=== PATIENT | male | born 1935 | race African-American/Black ===

== ENCOUNTER 2017-07-07 13:27 | Inpatient (IN) | payer MEDICARE, MEDICAID ==
[~2017-07-07] VITALS: Ht 182.9 cm; Wt 94.0 kg
[~2017-07-07 13:27] MED LIST: ENAL20TA75 PO; GLIP-127 PO; METO5TAB98 PO; NIFE90TA37 PO; NPH,100V SQ
[2017-07-07] MEDS ORDERED: aspirin 81mg tab.chew PO ONE (13:35)
[2017-07-07] MEDS ORDERED: furosemide 10 MG/1 ML 10ml inj IV ONE ×2 (13:35→17:00)
[2017-07-07 14:00] LABS: BASOPHILS % (AUTO) 0.3 % (0-1); EOSINOPHILS # (AUTO) 0.1 X10'3 (0-0.9); EOSINOPHILS % (AUTO) 1.7 % (0-6); HEMATOCRIT 41.4 % (42.0-52.0); LYMPHOCYTES # (AUTO) 0.9 X10'3 (1.1-4.8); LYMPHOCYTES % (AUTO) 11.9 % (21-51); MEAN CORPUSCULAR HGB CONC 33.8 % (33.0-36.5); MEAN CORPUSCULAR VOLUME 91.6 FL (78-98); MEAN PLATELET VOLUME 7.7 FL (7.4-10.4); MONOCYTES # (AUTO) 0.3 X10'3 (0-0.9); MONOCYTES % (AUTO) 4.8 % (2-12); NEUTROPHILS # (AUTO) 5.9 X10'3 (1.8-7.7); NEUTROPHILS % (AUTO) 81.3 % (42-75); PLATELET COUNT 293 X10'3 (140-440); RED BLOOD COUNT 4.52 X10'6 (4.70-6.10); RED CELL DISTRIBUTION WIDTH 17.9 % (11.5-14.5); WHITE BLOOD COUNT 7.2 X10'3 (4.5-11.0)
[2017-07-07 14:09] LABS: PROTHROMBIN TIME 10.1 SECONDS (9.0-12.0)
[2017-07-07 14:22] LABS: ALANINE AMINOTRANSFERASE 31 U/L (12-78); ALBUMIN 3.4 G/DL (3.4-5.0); ALBUMIN/GLOBULIN RATIO 0.8 (1.1-1.5); ALKALINE PHOSPHATASE 119 IU/L (46-116); ANION GAP 10 (8-16); ASPARTATE AMINO TRANSFERASE 26 U/L (10-37); BILIRUBIN,TOTAL 0.4 MG/DL (0.1-1.0); BLOOD UREA NITROGEN 26 MG/DL (7-18); CALCIUM 9.1 MG/DL (8.5-10.1); CHLORIDE 106 MMOL/L (99-107); CREATININE 2.37 MG/DL (0.60-1.10); GLUCOSE 220 MG/DL (70-104); POTASSIUM 4.7 MMOL/L (3.5-5.1); SODIUM 142 MMOL/L (135-145); TOTAL PROTEIN 7.9 G/DL (6.4-8.2); eGFR 32 ML/MIN
[2017-07-07] MEDS ORDERED: FLU VACC QS2017-18 36MOS UP/PF 60 MCG/0.5 ML SYRINGE IMVAC ONE (15:05)
[2017-07-07] MEDS ORDERED: pneumococcal 23-VAL P-sac vacc 25 mcg/0.5ml vial IMVAC ONE (15:05)
[2017-07-07] MEDS ORDERED: GLIP10TA11 PO (15:34)
[2017-07-07] MEDS ORDERED: METO-467 PO (15:34)
[2017-07-07] MEDS ORDERED: MULT1TAB74 PO (15:34)
[2017-07-07] MEDS ORDERED: ASPI-1265 PO (15:34)
[2017-07-07] MEDS ORDERED: OMEP20TA23 PO (15:34)
[2017-07-07] MEDS ORDERED: ondansetron/PF 4mg/2ml inj IV PRN (17:00)
[2017-07-07] MEDS ORDERED: albuterol 2.5 MG/3 ML nebule NEB PRN (17:00)
[2017-07-07] MEDS ORDERED: magnesium 2GM in 50ml NS 50 ML IV PRN (17:00)
[2017-07-07] MEDS ORDERED: morphine 5 MG/ML injection IV PRN ×2 (17:00)
[2017-07-07] MEDS ORDERED: magnesium 4gm in 100ml NS 100 ML IV PRN (17:00)
[2017-07-07] MEDS ORDERED: potassium Cl 40MEQ/NS 500ml 500 ML IV PRN ×2 (17:00)
[2017-07-07] MEDS ORDERED: potassium Cl 20 mEq SR tablet PO PRN ×2 (17:00)
[2017-07-07] MEDS ORDERED: magnesium hydroxide 30ml (MOM) UD suspension PO PRN (17:00)
[2017-07-07] MEDS ORDERED: acetaminophen 325mg tablet PO PRN (17:00)
[2017-07-07] MEDS ORDERED: mag hydrox/Alum hydrox/simeth 30ml oral suspension PO PRN (17:00)
[2017-07-07] MEDS ORDERED: magnesium Cl slow-release 64mg tablet PO PRN (17:00)
[2017-07-07 18:02] LABS: HEMOGLOBIN A1C 7.5 % (4.5-6.2)
[2017-07-07] MEDS ORDERED: BUMEX 1 MG IV SCH (18:02)
[2017-07-07] MEDS ORDERED: BUMEX 1 MG IV ONE (18:02)
[2017-07-07 19:30] VITALS: BP 150/73
[2017-07-07] MEDS ORDERED: ENALAPRIL MALEATE 20 MG PO SCH (20:00)
[2017-07-07] MEDS: lisinopril 20mg tablet PO SCH (20:07)
[2017-07-07] MEDS: metoprolol tartrate 50mg tablet PO SCH (20:08)
[2017-07-07] MEDS: heparin, porcine 5000 units/ml vial SQ SCH (20:11)
[2017-07-07 22:22] LABS: MAGNESIUM 2.6 MG/DL (1.5-2.4)
[2017-07-07 23:00] VITALS: BP 146/58
[2017-07-08 02:28] LABS: BASOPHILS % (AUTO) 0.6 % (0-1); EOSINOPHILS # (AUTO) 0.2 X10'3 (0-0.9); EOSINOPHILS % (AUTO) 2.7 % (0-6); HEMATOCRIT 39.4 % (42.0-52.0); HEMOGLOBIN 13.1 g/dl (14.0-17.9); LYMPHOCYTES # (AUTO) 0.9 X10'3 (1.1-4.8); LYMPHOCYTES % (AUTO) 11.9 % (21-51); MEAN CORPUSCULAR HGB CONC 33.4 % (33.0-36.5); MEAN CORPUSCULAR VOLUME 92.9 FL (78-98); MEAN PLATELET VOLUME 7.9 FL (7.4-10.4); MONOCYTES # (AUTO) 0.6 X10'3 (0-0.9); MONOCYTES % (AUTO) 7.6 % (2-12); NEUTROPHILS % (AUTO) 77.2 % (42-75); PLATELET COUNT 258 X10'3 (140-440); RED BLOOD COUNT 4.24 X10'6 (4.70-6.10); RED CELL DISTRIBUTION WIDTH 17.6 % (11.5-14.5); WHITE BLOOD COUNT 7.8 X10'3 (4.5-11.0)
[2017-07-08 02:47] LABS: ALANINE AMINOTRANSFERASE 21 U/L (12-78); ALBUMIN 2.9 G/DL (3.4-5.0); ALBUMIN/GLOBULIN RATIO 0.7 (1.1-1.5); ALKALINE PHOSPHATASE 103 IU/L (46-116); ANION GAP 10 (8-16); ASPARTATE AMINO TRANSFERASE 23 U/L (10-37); BILIRUBIN,TOTAL 0.4 MG/DL (0.1-1.0); BLOOD UREA NITROGEN 26 MG/DL (7-18); BUN/CREATININE RATIO 12.1 (5.4-32.0); CALCIUM 8.9 MG/DL (8.5-10.1); CHLORIDE 108 MMOL/L (99-107); CHOL/HDL RATIO 2.2 (0.00-4.99); CHOLESTEROL 121 MG/DL (0-200); CREATININE 2.15 MG/DL (0.60-1.10); GLUCOSE 199 MG/DL (70-104); HDL CHOLESTEROL 56 MG/DL (35-60); LDL CHOLESTEROL 59 MG/DL (50-100); MAGNESIUM 2.4 MG/DL (1.5-2.4); POTASSIUM 4.1 MMOL/L (3.5-5.1); SODIUM 144 MMOL/L (135-145); TOTAL CARBON DIOXIDE 25.7 MMOL/L (24-32); TRIGLYCERIDES 71 MG/DL (20-135); eGFR 36 ML/MIN
[2017-07-08 03:00] VITALS: BP 179/80
[2017-07-08] MEDS: hydrALAZINE 20mg/ml inj. IV PRN (04:31)
[2017-07-08 06:00] VITALS: BP 190/92
[2017-07-08] MEDS ORDERED: NIFEDIPINE 90 MG PO SCH (08:00)
[2017-07-08] MEDS ORDERED: MULTIVITAMINS PO SCH (08:00)
[2017-07-08] MEDS: heparin, porcine 5000 units/ml vial SQ SCH ×2 (08:06→20:18)
[2017-07-08] MEDS: pantoprazole 40mg Tablet.DR PO SCH (08:08)
[2017-07-08] MEDS: aspirin 81mg tab.chew PO SCH (08:09)
[2017-07-08] MEDS: lisinopril 20mg tablet PO SCH ×2 (08:09→20:17)
[2017-07-08] MEDS: metoprolol tartrate 50mg tablet PO SCH ×2 (08:09→20:17)
[2017-07-08] MEDS: multivitamins, therapeutics tablet PO SCH (08:09)
[2017-07-08] MEDS: NIFEdipine XL 30mg tablet PO SCH (08:09)
[2017-07-08] MEDS: K and/or MAG REPLACEMENT MC SCH (08:24)
[2017-07-08 11:00] VITALS: BP 144/70
[2017-07-08] MEDS ORDERED: dextrose 50%-water 50ml dispensing syringe IV PRN ×2 (11:30)
[2017-07-08] MEDS ORDERED: dextrose ORAL solution 15 GM/59 ML bottle PO PRN ×2 (11:30)
[2017-07-08] MEDS ORDERED: MESSAGE TO PHARMACY PO ONE (11:30)
[2017-07-08] MEDS ORDERED: glucagon, human recombinant 1mg kit SUBCUT PRN (11:30)
[2017-07-08] MEDS ORDERED: furosemide 20 MG/2 ML vial IV ONE (11:45)
[2017-07-08 15:00] VITALS: BP 103/73
[2017-07-08 19:00] VITALS: BP 159/81
[2017-07-08] MEDS: insulin Lispro (HumaLOG) vial - multi-dose SQ SCH (19:13)
[2017-07-08 23:00] VITALS: BP 168/70
[2017-07-09 03:00] VITALS: BP 180/109
[2017-07-09] MEDS: hydrALAZINE 20mg/ml inj. IV PRN (03:13)
[2017-07-09 05:49] LABS: BASOPHILS % (AUTO) 0.2 % (0-1); EOSINOPHILS # (AUTO) 0.1 X10'3 (0-0.9); EOSINOPHILS % (AUTO) 1.2 % (0-6); HEMATOCRIT 41.5 % (42.0-52.0); LYMPHOCYTES % (AUTO) 14.2 % (21-51); MEAN CORPUSCULAR HEMOGLOBIN 30.9 PG (27.0-31.0); MEAN CORPUSCULAR HGB CONC 33.8 % (33.0-36.5); MEAN CORPUSCULAR VOLUME 91.7 FL (78-98); MONOCYTES # (AUTO) 0.6 X10'3 (0-0.9); MONOCYTES % (AUTO) 7.7 % (2-12); NEUTROPHILS # (AUTO) 5.6 X10'3 (1.8-7.7); NEUTROPHILS % (AUTO) 76.7 % (42-75); PLATELET COUNT 255 X10'3 (140-440); RED BLOOD COUNT 4.53 X10'6 (4.70-6.10); RED CELL DISTRIBUTION WIDTH 17.5 % (11.5-14.5); WHITE BLOOD COUNT 7.3 X10'3 (4.5-11.0)
[2017-07-09 06:16] LABS: ALANINE AMINOTRANSFERASE 27 U/L (12-78); ALBUMIN 2.9 G/DL (3.4-5.0); ALBUMIN/GLOBULIN RATIO 0.7 (1.1-1.5); ALKALINE PHOSPHATASE 106 IU/L (46-116); ANION GAP 13 (8-16); ASPARTATE AMINO TRANSFERASE 17 U/L (10-37); BILIRUBIN,TOTAL 0.5 MG/DL (0.1-1.0); BLOOD UREA NITROGEN 27 MG/DL (7-18); CHLORIDE 106 MMOL/L (99-107); CREATININE 2.08 MG/DL (0.60-1.10); GLUCOSE 103 MG/DL (70-104); MAGNESIUM 2.2 MG/DL (1.5-2.4); POTASSIUM 3.8 MMOL/L (3.5-5.1); SODIUM 143 MMOL/L (135-145); TOTAL CARBON DIOXIDE 23.8 MMOL/L (24-32); TOTAL PROTEIN 7.1 G/DL (6.4-8.2); eGFR 37 ML/MIN
[2017-07-09 06:27] LABS: TROPONIN I 0.22 NG/ML (0.0-0.05)
[2017-07-09 07:00] VITALS: BP 198/95
[2017-07-09] MEDS: lisinopril 20mg tablet PO SCH ×2 (08:08→20:55)
[2017-07-09] MEDS: heparin, porcine 5000 units/ml vial SQ SCH ×2 (08:08→20:56)
[2017-07-09] MEDS: metoprolol tartrate 50mg tablet PO SCH ×2 (08:09→20:55)
[2017-07-09] MEDS: pantoprazole 40mg Tablet.DR PO SCH (08:09)
[2017-07-09] MEDS: aspirin 81mg tab.chew PO SCH (08:09)
[2017-07-09] MEDS: multivitamins, therapeutics tablet PO SCH (08:09)
[2017-07-09] MEDS: NIFEdipine XL 30mg tablet PO SCH (08:09)
[2017-07-09] MEDS: K and/or MAG REPLACEMENT MC SCH (08:09)
[2017-07-09 11:00] VITALS: BP 174/110
[2017-07-09] MEDS ORDERED: furosemide 40mg/4ml inj IV ONE ×2 (11:35)
[2017-07-09] MEDS ORDERED: metoprolol tartrate 50mg tablet PO ONE (12:00)
[2017-07-09 15:00] VITALS: BP 134/74
[2017-07-09 19:00] VITALS: BP 159/87
[2017-07-09] MEDS: insulin Lispro (HumaLOG) vial - multi-dose SQ SCH (19:32)
[2017-07-09 23:00] VITALS: BP 153/71
[2017-07-09] MEDS: temazepam 15mg capsule PO PRN (23:54)
[2017-07-10 03:00] VITALS: BP 159/79
[2017-07-10 05:33] LABS: BASOPHILS # (AUTO) 0.1 X10'3 (0-0.2); BASOPHILS % (AUTO) 0.9 % (0-1); EOSINOPHILS # (AUTO) 0.1 X10'3 (0-0.9); EOSINOPHILS % (AUTO) 1.4 % (0-6); HEMATOCRIT 39.5 % (42.0-52.0); HEMOGLOBIN 13.3 g/dl (14.0-17.9); LYMPHOCYTES % (AUTO) 13.2 % (21-51); MEAN CORPUSCULAR HEMOGLOBIN 30.8 PG (27.0-31.0); MEAN CORPUSCULAR HGB CONC 33.5 % (33.0-36.5); MEAN CORPUSCULAR VOLUME 91.9 FL (78-98); MEAN PLATELET VOLUME 7.7 FL (7.4-10.4); MONOCYTES # (AUTO) 0.5 X10'3 (0-0.9); MONOCYTES % (AUTO) 6.9 % (2-12); NEUTROPHILS # (AUTO) 5.6 X10'3 (1.8-7.7); NEUTROPHILS % (AUTO) 77.6 % (42-75); PLATELET COUNT 264 X10'3 (140-440); RED CELL DISTRIBUTION WIDTH 17.4 % (11.5-14.5); WHITE BLOOD COUNT 7.2 X10'3 (4.5-11.0)
[2017-07-10 06:12] LABS: ALANINE AMINOTRANSFERASE 25 U/L (12-78); ALBUMIN 2.7 G/DL (3.4-5.0); ALBUMIN/GLOBULIN RATIO 0.7 (1.1-1.5); ALKALINE PHOSPHATASE 98 IU/L (46-116); ANION GAP 12 (8-16); ASPARTATE AMINO TRANSFERASE 24 U/L (10-37); BILIRUBIN,TOTAL 0.5 MG/DL (0.1-1.0); BLOOD UREA NITROGEN 31 MG/DL (7-18); CALCIUM 8.4 MG/DL (8.5-10.1); CHLORIDE 104 MMOL/L (99-107); CREATININE 2.21 MG/DL (0.60-1.10); GLUCOSE 119 MG/DL (70-104); MAGNESIUM 2.2 MG/DL (1.5-2.4); SODIUM 142 MMOL/L (135-145); TOTAL CARBON DIOXIDE 25.9 MMOL/L (24-32); TOTAL PROTEIN 6.7 G/DL (6.4-8.2); eGFR 35 ML/MIN
[2017-07-10 07:00] VITALS: BP 161/96
[2017-07-10] MEDS: pantoprazole 40mg Tablet.DR PO SCH (08:17)
[2017-07-10] MEDS: aspirin 81mg tab.chew PO SCH (08:17)
[2017-07-10] MEDS: multivitamins, therapeutics tablet PO SCH (08:18)
[2017-07-10] MEDS: metoprolol tartrate 25mg tablet PO SCH ×2 (08:18→20:25)
[2017-07-10] MEDS: lisinopril 20mg tablet PO SCH ×2 (08:18→20:26)
[2017-07-10] MEDS: NIFEdipine XL 30mg tablet PO SCH (08:18)
[2017-07-10] MEDS: K and/or MAG REPLACEMENT MC SCH (08:19)
[2017-07-10] MEDS: heparin, porcine 5000 units/ml vial SQ SCH ×2 (08:19→20:26)
[2017-07-10 11:00] VITALS: BP 165/72
[2017-07-10 15:00] VITALS: BP 128/72
[2017-07-10] MEDS: insulin Lispro (HumaLOG) vial - multi-dose SQ SCH (18:49)
[2017-07-10 19:00] VITALS: BP 143/91
[2017-07-10] MEDS: temazepam 15mg capsule PO PRN (20:26)
[2017-07-10 23:00] VITALS: BP 120/70
[2017-07-11 03:00] VITALS: BP 158/80
[2017-07-11 05:27] LABS: BASOPHILS % (AUTO) 0.5 % (0-1); EOSINOPHILS # (AUTO) 0.1 X10'3 (0-0.9); EOSINOPHILS % (AUTO) 1.6 % (0-6); HEMATOCRIT 36.3 % (42.0-52.0); HEMOGLOBIN 12.1 g/dl (14.0-17.9); LYMPHOCYTES # (AUTO) 0.7 X10'3 (1.1-4.8); LYMPHOCYTES % (AUTO) 11.8 % (21-51); MEAN CORPUSCULAR HEMOGLOBIN 30.7 PG (27.0-31.0); MEAN CORPUSCULAR HGB CONC 33.4 % (33.0-36.5); MEAN PLATELET VOLUME 7.5 FL (7.4-10.4); MONOCYTES # (AUTO) 0.6 X10'3 (0-0.9); MONOCYTES % (AUTO) 9.8 % (2-12); NEUTROPHILS # (AUTO) 4.9 X10'3 (1.8-7.7); NEUTROPHILS % (AUTO) 76.3 % (42-75); PLATELET COUNT 227 X10'3 (140-440); RED BLOOD COUNT 3.95 X10'6 (4.70-6.10); RED CELL DISTRIBUTION WIDTH 16.9 % (11.5-14.5); WHITE BLOOD COUNT 6.4 X10'3 (4.5-11.0)
[2017-07-11 06:00] VITALS: BP 156/81
[2017-07-11 06:00] LABS: ALANINE AMINOTRANSFERASE 27 U/L (12-78); ALBUMIN 2.3 G/DL (3.4-5.0); ALBUMIN/GLOBULIN RATIO 0.6 (1.1-1.5); ALKALINE PHOSPHATASE 86 IU/L (46-116); ANION GAP 7 (8-16); ASPARTATE AMINO TRANSFERASE 22 U/L (10-37); BILIRUBIN,TOTAL 0.3 MG/DL (0.1-1.0); BLOOD UREA NITROGEN 38 MG/DL (7-18); BUN/CREATININE RATIO 16.3 (5.4-32.0); CALCIUM 8.2 MG/DL (8.5-10.1); CHLORIDE 106 MMOL/L (99-107); CREATININE 2.33 MG/DL (0.60-1.10); GLUCOSE 163 MG/DL (70-104); MAGNESIUM 2.3 MG/DL (1.5-2.4); SODIUM 140 MMOL/L (135-145); TOTAL CARBON DIOXIDE 27.1 MMOL/L (24-32); eGFR 33 ML/MIN
[2017-07-11] MEDS: multivitamins, therapeutics tablet PO SCH (07:32)
[2017-07-11] MEDS: pantoprazole 40mg Tablet.DR PO SCH (07:32)
[2017-07-11] MEDS: furosemide 40mg tablet PO SCH (07:32)
[2017-07-11] MEDS: lisinopril 20mg tablet PO SCH ×2 (07:32→20:40)
[2017-07-11] MEDS: heparin, porcine 5000 units/ml vial SQ SCH ×2 (07:33→20:39)
[2017-07-11] MEDS: metoprolol tartrate 25mg tablet PO SCH ×2 (07:33→20:40)
[2017-07-11] MEDS: aspirin 81mg tab.chew PO SCH (07:33)
[2017-07-11] MEDS: NIFEdipine XL 30mg tablet PO SCH (07:33)
[2017-07-11] MEDS: K and/or MAG REPLACEMENT MC SCH (08:00)
[2017-07-11] MEDS: insulin Lispro (HumaLOG) vial - multi-dose SQ SCH ×2 (08:42→13:28)
[2017-07-11 11:00] VITALS: BP 132/69
[2017-07-11 15:00] VITALS: BP 111/70
[2017-07-11 19:00] VITALS: BP 131/55
[2017-07-11] MEDS: temazepam 15mg capsule PO PRN (20:40)
[2017-07-11 23:00] VITALS: BP 153/69
[2017-07-12 03:00] VITALS: BP 107/68
[2017-07-12 05:59] LABS: BASOPHILS % (AUTO) 0.3 % (0-1); EOSINOPHILS # (AUTO) 0.1 X10'3 (0-0.9); EOSINOPHILS % (AUTO) 1.5 % (0-6); HEMATOCRIT 37.4 % (42.0-52.0); HEMOGLOBIN 12.6 g/dl (14.0-17.9); LYMPHOCYTES # (AUTO) 0.9 X10'3 (1.1-4.8); LYMPHOCYTES % (AUTO) 12.9 % (21-51); MEAN CORPUSCULAR HEMOGLOBIN 31.1 PG (27.0-31.0); MEAN CORPUSCULAR HGB CONC 33.7 % (33.0-36.5); MEAN CORPUSCULAR VOLUME 92.4 FL (78-98); MEAN PLATELET VOLUME 7.7 FL (7.4-10.4); MONOCYTES # (AUTO) 0.8 X10'3 (0-0.9); MONOCYTES % (AUTO) 10.9 % (2-12); NEUTROPHILS # (AUTO) 5.4 X10'3 (1.8-7.7); NEUTROPHILS % (AUTO) 74.4 % (42-75); PLATELET COUNT 231 X10'3 (140-440); RED BLOOD COUNT 4.05 X10'6 (4.70-6.10); RED CELL DISTRIBUTION WIDTH 16.6 % (11.5-14.5); WHITE BLOOD COUNT 7.3 X10'3 (4.5-11.0)
[2017-07-12 06:30] LABS: ALANINE AMINOTRANSFERASE 28 U/L (12-78); ALBUMIN 2.4 G/DL (3.4-5.0); ALBUMIN/GLOBULIN RATIO 0.6 (1.1-1.5); ALKALINE PHOSPHATASE 90 IU/L (46-116); ANION GAP 11 (8-16); ASPARTATE AMINO TRANSFERASE 22 U/L (10-37); BILIRUBIN,TOTAL 0.3 MG/DL (0.1-1.0); BLOOD UREA NITROGEN 42 MG/DL (7-18); BUN/CREATININE RATIO 16.8 (5.4-32.0); CALCIUM 8.4 MG/DL (8.5-10.1); CHLORIDE 104 MMOL/L (99-107); GLUCOSE 137 MG/DL (70-104); MAGNESIUM 2.2 MG/DL (1.5-2.4); POTASSIUM 4.2 MMOL/L (3.5-5.1); SODIUM 141 MMOL/L (135-145); TOTAL CARBON DIOXIDE 25.6 MMOL/L (24-32); TOTAL PROTEIN 6.3 G/DL (6.4-8.2); eGFR 30 ML/MIN
[2017-07-12 06:47] VITALS: BP 142/64
[2017-07-12] MEDS: K and/or MAG REPLACEMENT MC SCH (08:00)
[2017-07-12] MEDS: heparin, porcine 5000 units/ml vial SQ SCH ×2 (08:20→20:29)
[2017-07-12] MEDS: lisinopril 20mg tablet PO SCH ×2 (08:21→20:30)
[2017-07-12] MEDS: pantoprazole 40mg Tablet.DR PO SCH (08:21)
[2017-07-12] MEDS: NIFEdipine XL 30mg tablet PO SCH (08:21)
[2017-07-12] MEDS: furosemide 40mg tablet PO SCH (08:21)
[2017-07-12] MEDS: multivitamins, therapeutics tablet PO SCH (08:21)
[2017-07-12] MEDS: metoprolol tartrate 25mg tablet PO SCH ×2 (08:21→20:30)
[2017-07-12] MEDS: aspirin 81mg tab.chew PO SCH (08:21)
[2017-07-12 11:00] VITALS: BP 153/70
[2017-07-12 15:00] VITALS: BP 135/63
[2017-07-12 18:00] VITALS: BP 124/67
[2017-07-12] MEDS: temazepam 15mg capsule PO PRN (20:30)
[2017-07-12] MEDS: insulin Lispro (HumaLOG) vial - multi-dose SQ SCH (21:09)
[2017-07-12 22:00] VITALS: BP 147/75
[2017-07-13 05:54] LABS: ALBUMIN 2.5 G/DL (3.4-5.0); ANION GAP 8 (8-16); BLOOD UREA NITROGEN 45 MG/DL (7-18); BUN/CREATININE RATIO 19.8 (5.4-32.0); CALCIUM 8.7 MG/DL (8.5-10.1); CHLORIDE 104 MMOL/L (99-107); CREATININE 2.27 MG/DL (0.60-1.10); GLUCOSE 184 MG/DL (70-104); MAGNESIUM 2.3 MG/DL (1.5-2.4); POTASSIUM 4.3 MMOL/L (3.5-5.1); SODIUM 139 MMOL/L (135-145); TOTAL CARBON DIOXIDE 26.9 MMOL/L (24-32); eGFR 34 ML/MIN
[2017-07-13 06:00] VITALS: BP 143/85
[2017-07-13] MEDS: pantoprazole 40mg Tablet.DR PO SCH (07:51)
[2017-07-13] MEDS: NIFEdipine XL 30mg tablet PO SCH (07:51)
[2017-07-13] MEDS: aspirin 81mg tab.chew PO SCH (07:52)
[2017-07-13] MEDS: lisinopril 20mg tablet PO SCH ×2 (07:52→21:04)
[2017-07-13] MEDS: furosemide 40mg tablet PO SCH ×2 (07:52→21:04)
[2017-07-13] MEDS: multivitamins, therapeutics tablet PO SCH (07:52)
[2017-07-13] MEDS: K and/or MAG REPLACEMENT MC SCH (07:53)
[2017-07-13] MEDS: heparin, porcine 5000 units/ml vial SQ SCH ×2 (07:53→20:59)
[2017-07-13] MEDS: insulin Lispro (HumaLOG) vial - multi-dose SQ SCH ×3 (08:32→19:03)
[2017-07-13 10:17] LABS: CLARITY,URINE CLEAR (Clear); COLOR,URINE YELLOW (Yellow); GLUCOSE, URINE NEGATIVE (Neg); KETONES,URINE NEGATIVE (Neg); LEUKOCYTE ESTERASE ,URINE NEGATIVE (Neg); NITRITES, URINE NEGATIVE (Neg); OCCULT BLOOD,URINE SMALL (Neg); PH,URINE 5.5 (4.8-8.0); PROTEIN,URINE 100 mg/dl (Neg); UROBILINOGEN,URINE 0.2 E.U/dL (0.2-1.0)
[2017-07-13 10:23] LABS: UA COLLECTION TYPE CLN CATCH MIDSTREAM
[2017-07-13 10:24] LABS: BACTERIA,URINE NONE SEEN /HPF (Neg); MUCUS STRANDS NONE SEEN /LPF (Neg); RBC,URINE NONE SEEN /HPF (0-2); SQUAMOUS EPITHELIAL CELL,UR NONE SEEN /LPF (FEW); WBC,URINE NONE SEEN /HPF (0-4)
[2017-07-13 11:58] VITALS: BP 119/64
[2017-07-13 16:52] VITALS: BP 129/64
[2017-07-13 18:00] VITALS: BP 126/67
[2017-07-13] MEDS: temazepam 15mg capsule PO PRN (21:04)
[2017-07-13] MEDS: metoprolol tartrate 25mg tablet PO SCH (21:04)
[2017-07-13 22:00] VITALS: BP 129/65
[2017-07-14] MEDS ORDERED: potassium Cl 40MEQ/NS 500ml 500 ML IV PRN ×2 (00:20)
[2017-07-14] MEDS ORDERED: magnesium Cl slow-release 64mg tablet PO PRN (00:20)
[2017-07-14] MEDS ORDERED: potassium Cl 20 mEq SR tablet PO PRN ×2 (00:20)
[2017-07-14] MEDS ORDERED: magnesium 4gm in 100ml NS 100 ML IV PRN (00:20)
[2017-07-14] MEDS ORDERED: magnesium 2GM in 50ml NS 50 ML IV PRN (00:20)
[2017-07-14 02:00] VITALS: BP 139/53
[2017-07-14 06:00] VITALS: BP 143/75
[2017-07-14 06:47] LABS: ALBUMIN 2.3 G/DL (3.4-5.0); ANION GAP 8 (8-16); BLOOD UREA NITROGEN 44 MG/DL (7-18); BUN/CREATININE RATIO 19.7 (5.4-32.0); CALCIUM 8.8 MG/DL (8.5-10.1); CHLORIDE 105 MMOL/L (99-107); CREATININE 2.23 MG/DL (0.60-1.10); GLUCOSE 182 MG/DL (70-104); MAGNESIUM 2.4 MG/DL (1.5-2.4); POTASSIUM 4.3 MMOL/L (3.5-5.1); SODIUM 140 MMOL/L (135-145); TOTAL CARBON DIOXIDE 26.6 MMOL/L (24-32); eGFR 34 ML/MIN
[2017-07-14] MEDS: K and/or MAG REPLACEMENT MC SCH (08:00)
[2017-07-14] MEDS: insulin Lispro (HumaLOG) vial - multi-dose SQ SCH ×2 (09:24→13:21)
[2017-07-14] MEDS: metoprolol tartrate 25mg tablet PO SCH (09:27)
[2017-07-14] MEDS: lisinopril 20mg tablet PO SCH (09:27)
[2017-07-14] MEDS: multivitamins, therapeutics tablet PO SCH (09:27)
[2017-07-14] MEDS: pantoprazole 40mg Tablet.DR PO SCH (09:27)
[2017-07-14] MEDS: furosemide 40mg tablet PO SCH (09:27)
[2017-07-14] MEDS: NIFEdipine XL 30mg tablet PO SCH (09:27)
[2017-07-14] MEDS: aspirin 81mg tab.chew PO SCH (09:27)
[2017-07-14] MEDS: heparin, porcine 5000 units/ml vial SQ SCH (09:29)
[2017-07-14 11:00] VITALS: BP 143/72
== END 2017-07-14 15:05 | DRG 291 ==
LOC: ER 13:28 → ED HOLD 16:58 → EDBEDREQ 18:01 → PCU 3S 19:15
PROVIDERS: ADMIT Internal Medicine; ATTEND Internal Medicine
DX: I13.0 Hypertensive heart and chronic kidney disease with heart failure and stage 1 through stage 4 chronic kidney disease, or unspecified chronic kidney disease (principal); J96.01 Acute respiratory failure with hypoxia; N17.9 Acute kidney failure, unspecified; I50.33 Acute on chronic diastolic (congestive) heart failure; N18.3 Chronic kidney disease, stage 3 (moderate); E11.22 Type 2 diabetes mellitus with diabetic chronic kidney disease; I08.1 Rheumatic disorders of both mitral and tricuspid valves; I27.20 Pulmonary hypertension, unspecified; I48.0 Paroxysmal atrial fibrillation; I48.2 Chronic atrial fibrillation; K21.9 Gastro-esophageal reflux disease without esophagitis; K80.20 Calculus of gallbladder without cholecystitis without obstruction; H54.8 Legal blindness, as defined in USA; Z51.5 Encounter for palliative care; Z79.899 Other long term (current) drug therapy; Z79.84 Long term (current) use of oral hypoglycemic drugs; Z79.82 Long term (current) use of aspirin
CPT/HCPCS: 36415; 71045; 71250; 80048; 80053; 80061; 81001; 82948; 83036; 83735; 83880; 84484; 85025; 85610; 87070; 90471; 90472; 90732; 93005; 93306; 94640; 94760; 96374; 97110; 97116; 97161; 97530; 99285; A4353; A6212; A6213; A6250; J0360; J1644; J1940; J8597; Q2037

== ENCOUNTER 2017-07-17 07:45 | Inpatient (IN) | payer MEDICARE, MEDICAID ==
[~2017-07-17] VITALS: Ht 182.9 cm; Wt 85.6 kg
[~2017-07-17 07:45] MED LIST changes: +ASPI-1265 PO; -GLIP-127 PO; +GLIP10TA11 PO; +METO-467 PO; +MULT1TAB74 PO; +OMEP20TA23 PO
[2017-07-17 10:17] LABS: BASOPHILS % (AUTO) 0.1 % (0-1); EOSINOPHILS # (AUTO) 0.1 X10'3 (0-0.9); EOSINOPHILS % (AUTO) 1.8 % (0-6); HEMATOCRIT 37.8 % (42.0-52.0); HEMOGLOBIN 12.8 g/dl (14.0-17.9); LYMPHOCYTES # (AUTO) 0.9 X10'3 (1.1-4.8); LYMPHOCYTES % (AUTO) 14.4 % (21-51); MEAN CORPUSCULAR HEMOGLOBIN 30.8 PG (27.0-31.0); MEAN CORPUSCULAR VOLUME 90.7 FL (78-98); MONOCYTES # (AUTO) 0.1 X10'3 (0-0.9); NEUTROPHILS # (AUTO) 5.1 X10'3 (1.8-7.7); NEUTROPHILS % (AUTO) 81.7 % (42-75); PLATELET COUNT 302 X10'3 (140-440); RED BLOOD COUNT 4.16 X10'6 (4.70-6.10); WHITE BLOOD COUNT 6.3 X10'3 (4.5-11.0)
[2017-07-17 10:28] LABS: PARTIAL THROMBOPLASTIN TIME 28 SECONDS (22-32); PROTHROMBIN TIME 9.9 SECONDS (9.0-12.0)
[2017-07-17 10:40] LABS: ALANINE AMINOTRANSFERASE 16 U/L (12-78); ALBUMIN 2.4 G/DL (3.4-5.0); ALBUMIN/GLOBULIN RATIO 0.5 (1.1-1.5); ALKALINE PHOSPHATASE 90 IU/L (46-116); ANION GAP 8 (8-16); ASPARTATE AMINO TRANSFERASE 27 U/L (10-37); BILIRUBIN,TOTAL 0.3 MG/DL (0.1-1.0); BLOOD UREA NITROGEN 40 MG/DL (7-18); BUN/CREATININE RATIO 20.5 (5.4-32.0); CALCIUM 8.9 MG/DL (8.5-10.1); CHLORIDE 106 MMOL/L (99-107); CREATINE KINASE 45 U/L (39-308); CREATININE 1.95 MG/DL (0.60-1.10); GLUCOSE 83 MG/DL (70-104); MAGNESIUM 2.1 MG/DL (1.5-2.4); POTASSIUM 4.4 MMOL/L (3.5-5.1); SODIUM 144 MMOL/L (135-145); TOTAL CARBON DIOXIDE 30.3 MMOL/L (24-32); eGFR 40 ML/MIN
[2017-07-17] MEDS ORDERED: magnesium hydroxide 30ml (MOM) UD suspension PO PRN ×2 (16:10→16:15)
[2017-07-17] MEDS ORDERED: acetaminophen 325mg tablet PO PRN ×2 (16:10→16:15)
[2017-07-17] MEDS ORDERED: ondansetron/PF 4mg/2ml inj IV PRN ×2 (16:10→16:15)
[2017-07-17] MEDS ORDERED: morphine 2 MG/ML inj. syringe IV PRN (16:10)
[2017-07-17] MEDS ORDERED: mag hydrox/Alum hydrox/simeth 30ml oral suspension PO PRN ×2 (16:10→16:15)
[2017-07-17] MEDS ORDERED: glucagon, human recombinant 1mg kit SUBCUT PRN (16:15)
[2017-07-17] MEDS ORDERED: dextrose ORAL solution 15 GM/59 ML bottle PO PRN ×2 (16:15)
[2017-07-17] MEDS ORDERED: MESSAGE TO PHARMACY PO ONE (16:15)
[2017-07-17] MEDS ORDERED: dextrose 50%-water 50ml dispensing syringe IV PRN ×2 (16:15)
[2017-07-17] MEDS ORDERED: IBUP-1984 PO (19:55)
[2017-07-17] MEDS ORDERED: FURO40TA4 PO (19:55)
[2017-07-17] MEDS ORDERED: TEMA15CA5 PO (19:55)
[2017-07-17] MEDS ORDERED: LISI10TA4 PO (19:57)
[2017-07-17] MEDS ORDERED: furosemide 10 MG/1 ML 10ml inj IV ONE (20:00)
[2017-07-17] MEDS ORDERED: METO25TA6 PO (20:09)
[2017-07-17] MEDS ORDERED: INSU100C10 SQ (20:09)
[2017-07-17] MEDS ORDERED: [UNRECOGNIZED DRUG - CODE] SQ (20:09)
[2017-07-17] MEDS ORDERED: ALB0.5UD IH (20:09)
[2017-07-17] MEDS ORDERED: METO-292 PO (20:09)
[2017-07-17 20:25] VITALS: BP 156/78
[2017-07-17] MEDS: metoprolol tartrate 50mg tablet PO SCH (20:53)
[2017-07-17] MEDS: heparin, porcine 5000 units/ml vial SQ SCH (20:54)
[2017-07-17] MEDS: insulin glargine (Lantus) pen - multi-dose SQ SCH (21:00)
[2017-07-17 22:00] VITALS: BP 174/89
[2017-07-17] MEDS ORDERED: hydrALAZINE 20mg/ml inj. IV PRN (22:45)
[2017-07-18] VITALS (15 sets, daily range): BP systolic 111–168; BP diastolic 49–99
[2017-07-18] MEDS ORDERED: diltiazem 5mg/ml 5ml inj. IV ONE (01:05)
[2017-07-18] MEDS ORDERED: magnesium 4gm in 100ml NS 100 ML IV PRN (01:50)
[2017-07-18] MEDS ORDERED: Neutra Phos packet PO PRN (01:50)
[2017-07-18] MEDS ORDERED: sodium phosphate inj. 15 MMOL in dextrose 5%-water 150 ML IV PRN (01:50)
[2017-07-18] MEDS ORDERED: potassium Cl 20 mEq SR tablet PO PRN ×2 (01:50)
[2017-07-18] MEDS ORDERED: magnesium Cl slow-release 64mg tablet PO PRN (01:50)
[2017-07-18] MEDS ORDERED: magnesium 2GM in 50ml NS 50 ML IV PRN (01:50)
[2017-07-18] MEDS ORDERED: sodium phosphate inj. 30 MMOL in dextrose 5%-water 250 ML IV PRN (01:50)
[2017-07-18] MEDS ORDERED: furosemide 10 MG/1 ML 10ml inj IV ONE ×2 (02:05→02:10)
[2017-07-18] MEDS ORDERED: normal saline 100ml IV soln 100 ML ONE (02:11)
[2017-07-18] MEDS: furosemide inj 100 MG in normal saline 100ml IV soln 90 ML IV SCH ×2 (02:30→19:32)
[2017-07-18] MEDS: temazepam 15mg capsule PO PRN ×2 (02:45→21:45)
[2017-07-18 05:21] LABS: BASOPHILS % (AUTO) 0.2 % (0-1); EOSINOPHILS # (AUTO) 0.1 X10'3 (0-0.9); EOSINOPHILS % (AUTO) 1.1 % (0-6); HEMATOCRIT 37.7 % (42.0-52.0); HEMOGLOBIN 12.6 g/dl (14.0-17.9); LYMPHOCYTES # (AUTO) 0.7 X10'3 (1.1-4.8); LYMPHOCYTES % (AUTO) 9.7 % (21-51); MEAN CORPUSCULAR HEMOGLOBIN 30.5 PG (27.0-31.0); MEAN CORPUSCULAR HGB CONC 33.5 % (33.0-36.5); MEAN CORPUSCULAR VOLUME 91.1 FL (78-98); MEAN PLATELET VOLUME 7.2 FL (7.4-10.4); MONOCYTES # (AUTO) 0.5 X10'3 (0-0.9); MONOCYTES % (AUTO) 7.3 % (2-12); NEUTROPHILS # (AUTO) 5.8 X10'3 (1.8-7.7); NEUTROPHILS % (AUTO) 81.7 % (42-75); PLATELET COUNT 327 X10'3 (140-440); RED BLOOD COUNT 4.14 X10'6 (4.70-6.10); RED CELL DISTRIBUTION WIDTH 16.2 % (11.5-14.5)
[2017-07-18] MEDS ORDERED: metoclopramide 10mg tablet PO PRN (05:35)
[2017-07-18 05:39] LABS: CHLORIDE 106 MMOL/L (99-107); GLUCOSE 102 MG/DL (70-104); POTASSIUM 4.2 MMOL/L (3.5-5.1); SODIUM 145 MMOL/L (135-145)
[2017-07-18 05:40] LABS: ALBUMIN 2.2 G/DL (3.4-5.0); ANION GAP 7 (8-16); BLOOD UREA NITROGEN 36 MG/DL (7-18); BUN/CREATININE RATIO 18.8 (5.4-32.0); CREATININE 1.91 MG/DL (0.60-1.10); PHOSPHORUS 3.7 MG/DL (2.3-4.5); TOTAL CARBON DIOXIDE 31.8 MMOL/L (24-32); eGFR 41 ML/MIN
[2017-07-18] MEDS ORDERED: albuterol 2.5 MG/3 ML nebule NEB PRN (05:50)
[2017-07-18] MEDS ORDERED: lisinopril 10 MG tablet PO SCH (08:00)
[2017-07-18] MEDS: heparin, porcine 5000 units/ml vial SQ SCH ×2 (08:00→21:46)
[2017-07-18] MEDS ORDERED: HEPARIN SODIUM PORCINE 5000 UNIT SQ SCH (08:00)
[2017-07-18] MEDS ORDERED: metoprolol tartrate 25mg tablet PO SCH (08:00)
[2017-07-18] MEDS: lisinopril 20mg tablet PO SCH (08:39)
[2017-07-18] MEDS: metoprolol tartrate 50mg tablet PO SCH ×2 (08:39→21:45)
[2017-07-18] MEDS: aspirin 81mg tab.chew PO SCH (08:39)
[2017-07-18] MEDS: NIFEdipine XL 30mg tablet PO SCH (08:39)
[2017-07-18] MEDS: multivitamins, therapeutics tablet PO SCH (08:40)
[2017-07-18] MEDS: pantoprazole 40mg Tablet.DR PO SCH (08:42)
[2017-07-18 09:24] LABS: ALBUMIN 2.4 G/DL (3.4-5.0); ANION GAP 8 (8-16); BLOOD UREA NITROGEN 34 MG/DL (7-18); BUN/CREATININE RATIO 18.2 (5.4-32.0); CALCIUM 9.1 MG/DL (8.5-10.1); CHLORIDE 104 MMOL/L (99-107); CREATININE 1.87 MG/DL (0.60-1.10); GLUCOSE 114 MG/DL (70-104); PHOSPHORUS 3.7 MG/DL (2.3-4.5); POTASSIUM 4.4 MMOL/L (3.5-5.1); SODIUM 145 MMOL/L (135-145); TOTAL CARBON DIOXIDE 33.2 MMOL/L (24-32); eGFR 42 ML/MIN
[2017-07-18 13:54] LABS: ALBUMIN 2.4 G/DL (3.4-5.0); ANION GAP 9 (8-16); BLOOD UREA NITROGEN 37 MG/DL (7-18); BUN/CREATININE RATIO 19.6 (5.4-32.0); CALCIUM 8.8 MG/DL (8.5-10.1); CHLORIDE 102 MMOL/L (99-107); CREATININE 1.89 MG/DL (0.60-1.10); GLUCOSE 235 MG/DL (70-104); POTASSIUM 4.3 MMOL/L (3.5-5.1); SODIUM 140 MMOL/L (135-145); TOTAL CARBON DIOXIDE 29.2 MMOL/L (24-32); eGFR 41 ML/MIN
[2017-07-18 13:57] LABS: ALBUMIN 2.4 G/DL (3.4-5.0); ANION GAP 10 (8-16); BLOOD UREA NITROGEN 37 MG/DL (7-18); BUN/CREATININE RATIO 19.5 (5.4-32.0); CALCIUM 8.9 MG/DL (8.5-10.1); CHLORIDE 102 MMOL/L (99-107); GLUCOSE 236 MG/DL (70-104); PHOSPHORUS 3.6 MG/DL (2.3-4.5); POTASSIUM 4.3 MMOL/L (3.5-5.1); SODIUM 141 MMOL/L (135-145); TOTAL CARBON DIOXIDE 29.5 MMOL/L (24-32); eGFR 41 ML/MIN
[2017-07-18] MEDS: insulin Lispro (HumaLOG) vial - multi-dose SQ SCH (19:02)
[2017-07-18] MEDS ORDERED: temazepam 15mg capsule PO SCH (21:00)
[2017-07-18 21:05] LABS: ALBUMIN 2.2 G/DL (3.4-5.0); ANION GAP 8 (8-16); BLOOD UREA NITROGEN 42 MG/DL (7-18); BUN/CREATININE RATIO 18.6 (5.4-32.0); CALCIUM 8.7 MG/DL (8.5-10.1); CHLORIDE 102 MMOL/L (99-107); CREATININE 2.26 MG/DL (0.60-1.10); GLUCOSE 266 MG/DL (70-104); POTASSIUM 4.3 MMOL/L (3.5-5.1); SODIUM 140 MMOL/L (135-145); TOTAL CARBON DIOXIDE 29.8 MMOL/L (24-32); eGFR 34 ML/MIN
[2017-07-18 21:15] LABS: ALBUMIN 2.2 G/DL (3.4-5.0); ANION GAP 9 (8-16); BLOOD UREA NITROGEN 42 MG/DL (7-18); BUN/CREATININE RATIO 18.8 (5.4-32.0); CALCIUM 8.5 MG/DL (8.5-10.1); CHLORIDE 102 MMOL/L (99-107); CREATININE 2.23 MG/DL (0.60-1.10); GLUCOSE 266 MG/DL (70-104); PHOSPHORUS 3.6 MG/DL (2.3-4.5); POTASSIUM 4.4 MMOL/L (3.5-5.1); SODIUM 140 MMOL/L (135-145); TOTAL CARBON DIOXIDE 28.9 MMOL/L (24-32); eGFR 34 ML/MIN
[2017-07-18] MEDS: insulin glargine (Lantus) pen - multi-dose SQ SCH (21:53)
[2017-07-19] VITALS (10 sets, daily range): BP systolic 91–145; BP diastolic 48–92
[2017-07-19 00:58] LABS: ANION GAP 7 (8-16); BLOOD UREA NITROGEN 42 MG/DL (7-18); CALCIUM 8.4 MG/DL (8.5-10.1); CHLORIDE 105 MMOL/L (99-107); GLUCOSE 74 MG/DL (70-104); SODIUM 143 MMOL/L (135-145); TOTAL CARBON DIOXIDE 31.2 MMOL/L (24-32); eGFR 37 ML/MIN
[2017-07-19 01:11] LABS: BASOPHILS # (AUTO) 0.1 X10'3 (0-0.2); EOSINOPHILS # (AUTO) 0.1 X10'3 (0-0.9); EOSINOPHILS % (AUTO) 1.3 % (0-6); HEMATOCRIT 36.2 % (42.0-52.0); HEMOGLOBIN 11.8 g/dl (14.0-17.9); LYMPHOCYTES # (AUTO) 0.8 X10'3 (1.1-4.8); LYMPHOCYTES % (AUTO) 11.9 % (21-51); MEAN CORPUSCULAR HEMOGLOBIN 29.6 PG (27.0-31.0); MEAN CORPUSCULAR HGB CONC 32.7 % (33.0-36.5); MEAN CORPUSCULAR VOLUME 90.6 FL (78-98); MEAN PLATELET VOLUME 8.1 FL (7.4-10.4); MONOCYTES # (AUTO) 0.7 X10'3 (0-0.9); MONOCYTES % (AUTO) 10.6 % (2-12); NEUTROPHILS # (AUTO) 4.9 X10'3 (1.8-7.7); NEUTROPHILS % (AUTO) 74.2 % (42-75); PLATELET COUNT 305 X10'3 (140-440); RED BLOOD COUNT 3.99 X10'6 (4.70-6.10); RED CELL DISTRIBUTION WIDTH 14.7 % (11.5-14.5); WHITE BLOOD COUNT 6.6 X10'3 (4.5-11.0)
[2017-07-19 06:32] LABS: ALANINE AMINOTRANSFERASE 24 U/L (12-78); ALBUMIN 2.1 G/DL (3.4-5.0); ALBUMIN/GLOBULIN RATIO 0.5 (1.1-1.5); ALKALINE PHOSPHATASE 87 IU/L (46-116); ANION GAP 9 (8-16); ASPARTATE AMINO TRANSFERASE 31 U/L (10-37); BILIRUBIN,TOTAL 0.3 MG/DL (0.1-1.0); BLOOD UREA NITROGEN 41 MG/DL (7-18); BUN/CREATININE RATIO 19.2 (5.4-32.0); CALCIUM 8.8 MG/DL (8.5-10.1); CHLORIDE 106 MMOL/L (99-107); CREATININE 2.13 MG/DL (0.60-1.10); GLUCOSE 94 MG/DL (70-104); PHOSPHORUS 4.4 MG/DL (2.3-4.5); POTASSIUM 4.3 MMOL/L (3.5-5.1); SODIUM 145 MMOL/L (135-145); TOTAL CARBON DIOXIDE 30.2 MMOL/L (24-32); TOTAL PROTEIN 6.4 G/DL (6.4-8.2); eGFR 36 ML/MIN
[2017-07-19] MEDS: lisinopril 20mg tablet PO SCH (09:24)
[2017-07-19] MEDS: metoprolol tartrate 50mg tablet PO SCH ×2 (09:24→20:37)
[2017-07-19] MEDS: multivitamins, therapeutics tablet PO SCH (09:24)
[2017-07-19] MEDS: aspirin 81mg tab.chew PO SCH (09:24)
[2017-07-19] MEDS: pantoprazole 40mg Tablet.DR PO SCH (09:24)
[2017-07-19] MEDS: NIFEdipine XL 30mg tablet PO SCH (09:25)
[2017-07-19] MEDS: heparin, porcine 5000 units/ml vial SQ SCH ×2 (09:30→20:37)
[2017-07-19] MEDS: insulin Lispro (HumaLOG) vial - multi-dose SQ SCH (13:51)
[2017-07-19] MEDS: furosemide 40mg tablet PO SCH (20:37)
[2017-07-19] MEDS: insulin glargine (Lantus) pen - multi-dose SQ SCH (21:27)
[2017-07-19] MEDS: temazepam 15mg capsule PO PRN (21:28)
[2017-07-20 03:00] VITALS: BP 128/65
[2017-07-20 05:26] LABS: BASOPHILS % (AUTO) 0.3 % (0-1); EOSINOPHILS # (AUTO) 0.2 X10'3 (0-0.9); EOSINOPHILS % (AUTO) 2.1 % (0-6); HEMATOCRIT 32.7 % (42.0-52.0); HEMOGLOBIN 11.1 g/dl (14.0-17.9); LYMPHOCYTES % (AUTO) 14.4 % (21-51); MEAN CORPUSCULAR HEMOGLOBIN 30.5 PG (27.0-31.0); MEAN CORPUSCULAR VOLUME 89.7 FL (78-98); MEAN PLATELET VOLUME 7.5 FL (7.4-10.4); MONOCYTES # (AUTO) 0.6 X10'3 (0-0.9); MONOCYTES % (AUTO) 8.2 % (2-12); NEUTROPHILS # (AUTO) 5.4 X10'3 (1.8-7.7); PLATELET COUNT 301 X10'3 (140-440); RED BLOOD COUNT 3.64 X10'6 (4.70-6.10); RED CELL DISTRIBUTION WIDTH 15.8 % (11.5-14.5); WHITE BLOOD COUNT 7.2 X10'3 (4.5-11.0)
[2017-07-20 06:00] VITALS: BP 125/61
[2017-07-20 06:08] LABS: ALBUMIN 1.9 G/DL (3.4-5.0); ANION GAP 6 (8-16); BLOOD UREA NITROGEN 48 MG/DL (7-18); BUN/CREATININE RATIO 21.6 (5.4-32.0); CALCIUM 8.4 MG/DL (8.5-10.1); CHLORIDE 106 MMOL/L (99-107); CREATININE 2.22 MG/DL (0.60-1.10); GLUCOSE 83 MG/DL (70-104); MAGNESIUM 2.1 MG/DL (1.5-2.4); PHOSPHORUS 4.1 MG/DL (2.3-4.5); SODIUM 144 MMOL/L (135-145); TOTAL CARBON DIOXIDE 31.8 MMOL/L (24-32); eGFR 34 ML/MIN
[2017-07-20] MEDS: aspirin 81mg tab.chew PO SCH (09:04)
[2017-07-20] MEDS: pantoprazole 40mg Tablet.DR PO SCH (09:04)
[2017-07-20] MEDS: furosemide 40mg tablet PO SCH ×2 (09:04→20:26)
[2017-07-20] MEDS: NIFEdipine XL 30mg tablet PO SCH (09:05)
[2017-07-20] MEDS: metoprolol tartrate 50mg tablet PO SCH ×2 (09:05→20:26)
[2017-07-20] MEDS: multivitamins, therapeutics tablet PO SCH (09:05)
[2017-07-20] MEDS: heparin, porcine 5000 units/ml vial SQ SCH ×2 (09:06→20:32)
[2017-07-20 11:00] VITALS: BP 118/52
[2017-07-20] MEDS ORDERED: bismuth subsalicylate 525mg/30ml oral suspension PO SCH (14:00)
[2017-07-20] MEDS: insulin Lispro (HumaLOG) vial - multi-dose SQ SCH ×2 (14:44→19:07)
[2017-07-20 15:00] VITALS: BP 107/61
[2017-07-20 19:00] VITALS: BP 112/64
[2017-07-20] MEDS: temazepam 15mg capsule PO PRN (20:26)
[2017-07-20] MEDS: bismuth subsalicylate 262mg chew tablet PO SCH (21:02)
[2017-07-20] MEDS: insulin glargine (Lantus) pen - multi-dose SQ SCH (21:08)
[2017-07-20 23:00] VITALS: BP 134/61
[2017-07-21] MEDS: bismuth subsalicylate 262mg chew tablet PO SCH ×2 (02:00→07:15)
[2017-07-21 03:00] VITALS: BP 97/73
[2017-07-21 05:09] LABS: BASOPHILS % (AUTO) 0.3 % (0-1); EOSINOPHILS # (AUTO) 0.2 X10'3 (0-0.9); EOSINOPHILS % (AUTO) 2.5 % (0-6); LYMPHOCYTES # (AUTO) 1.2 X10'3 (1.1-4.8); LYMPHOCYTES % (AUTO) 16.7 % (21-51); MEAN CORPUSCULAR HEMOGLOBIN 30.3 PG (27.0-31.0); MEAN CORPUSCULAR HGB CONC 33.4 % (33.0-36.5); MEAN CORPUSCULAR VOLUME 90.6 FL (78-98); MEAN PLATELET VOLUME 7.4 FL (7.4-10.4); MONOCYTES # (AUTO) 0.7 X10'3 (0-0.9); MONOCYTES % (AUTO) 9.9 % (2-12); NEUTROPHILS % (AUTO) 70.6 % (42-75); PLATELET COUNT 330 X10'3 (140-440); RED BLOOD COUNT 3.97 X10'6 (4.70-6.10); RED CELL DISTRIBUTION WIDTH 15.6 % (11.5-14.5); WHITE BLOOD COUNT 7.1 X10'3 (4.5-11.0)
[2017-07-21 05:33] LABS: ANION GAP 7 (8-16); BLOOD UREA NITROGEN 50 MG/DL (7-18); BUN/CREATININE RATIO 22.8 (5.4-32.0); CALCIUM 8.5 MG/DL (8.5-10.1); CHLORIDE 106 MMOL/L (99-107); CREATININE 2.19 MG/DL (0.60-1.10); GLUCOSE 68 MG/DL (70-104); MAGNESIUM 2.1 MG/DL (1.5-2.4); PHOSPHORUS 3.9 MG/DL (2.3-4.5); SODIUM 145 MMOL/L (135-145); TOTAL CARBON DIOXIDE 31.8 MMOL/L (24-32); eGFR 35 ML/MIN
[2017-07-21 07:00] VITALS: BP 149/79
[2017-07-21] MEDS: multivitamins, therapeutics tablet PO SCH (07:14)
[2017-07-21] MEDS: furosemide 40mg tablet PO SCH (07:14)
[2017-07-21] MEDS: NIFEdipine XL 30mg tablet PO SCH (07:14)
[2017-07-21] MEDS: pantoprazole 40mg Tablet.DR PO SCH (07:14)
[2017-07-21] MEDS: heparin, porcine 5000 units/ml vial SQ SCH (07:15)
[2017-07-21] MEDS: metoprolol tartrate 50mg tablet PO SCH (07:15)
[2017-07-21] MEDS: aspirin 81mg tab.chew PO SCH (07:15)
[2017-07-21 11:00] VITALS: BP 108/61
== END 2017-07-21 13:35 | DRG 291 ==
LOC: ER 07:45 → ED HOLD 16:12 → ORTHO 4S 20:25 → PCU 3S 07-18 01:10
PROVIDERS: ADMIT Internal Medicine Nephrology; ATTEND Internal Medicine
PROC: 0W9B3ZZ Drainage of Left Pleural Cavity, Percutaneous Approach (ICD-10-PCS; principal; 2017-07-19)
PROC: 0W993ZZ Drainage of Right Pleural Cavity, Percutaneous Approach (ICD-10-PCS; 2017-07-19)
DX: I13.0 Hypertensive heart and chronic kidney disease with heart failure and stage 1 through stage 4 chronic kidney disease, or unspecified chronic kidney disease (principal); I50.33 Acute on chronic diastolic (congestive) heart failure; J90 Pleural effusion, not elsewhere classified; E11.22 Type 2 diabetes mellitus with diabetic chronic kidney disease; I27.29 Other secondary pulmonary hypertension; I08.1 Rheumatic disorders of both mitral and tricuspid valves; N18.3 Chronic kidney disease, stage 3 (moderate); H54.8 Legal blindness, as defined in USA; I48.0 Paroxysmal atrial fibrillation; Z79.82 Long term (current) use of aspirin; Z79.899 Other long term (current) drug therapy; Z79.84 Long term (current) use of oral hypoglycemic drugs; Z79.4 Long term (current) use of insulin
CPT/HCPCS: 32555; 36415; 71045; 71250; 80048; 80053; 80069; 82550; 82948; 83605; 83735; 83880; 84100; 85025; 85610; 85730; 87040; 87070; 97162; 99285; A4315; A4620; A6209; A6213; A6250; J0360; J1644; J1815; J1940; J3490; J7030; J8597

== ENCOUNTER 2017-12-29 12:55 | Inpatient (IN) | payer MEDICARE, MEDICAID ==
[~2017-12-29] VITALS: Ht 185.4 cm; Wt 84.0 kg
[~2017-12-29 12:55] MED LIST changes: +ALB0.5UD IH; -ENAL20TA75 PO; +FURO40TA4 PO; +INSU100C10 SQ; +LISI10TA4 PO; +METO-292 PO; -METO-467 PO; +METO25TA6 PO; -METO5TAB98 PO; -NPH,100V SQ; +TEMA15CA5 PO; +[UNRECOGNIZED DRUG - CODE] SQ
[2017-12-29] MEDS ORDERED: albuterol 2.5 MG/3 ML nebule NEB ONE (13:20)
[2017-12-29 13:42] LABS: BASOPHILS # (AUTO) 0.1 X10'3 (0-0.2); BASOPHILS % (AUTO) 0.9 % (0-1); EOSINOPHILS % (AUTO) 0.3 % (0-6); HEMATOCRIT 36.7 % (42.0-52.0); HEMOGLOBIN 12.1 g/dl (14.0-17.9); LYMPHOCYTES # (AUTO) 0.7 X10'3 (1.1-4.8); LYMPHOCYTES % (AUTO) 6.6 % (21-51); MEAN CORPUSCULAR HEMOGLOBIN 29.7 PG (27.0-31.0); MEAN CORPUSCULAR HGB CONC 32.8 % (33.0-36.5); MEAN CORPUSCULAR VOLUME 90.5 FL (78-98); MEAN PLATELET VOLUME 7.7 FL (7.4-10.4); MONOCYTES # (AUTO) 0.7 X10'3 (0-0.9); MONOCYTES % (AUTO) 6.6 % (2-12); NEUTROPHILS # (AUTO) 8.7 X10'3 (1.8-7.7); NEUTROPHILS % (AUTO) 85.6 % (42-75); PLATELET COUNT 338 X10'3 (140-440); RED BLOOD COUNT 4.06 X10'6 (4.70-6.10); RED CELL DISTRIBUTION WIDTH 18.4 % (11.5-14.5); WHITE BLOOD COUNT 10.2 X10'3 (4.5-11.0)
[2017-12-29 13:51] LABS: PARTIAL THROMBOPLASTIN TIME 30 SECONDS (22-32); PROTHROMBIN TIME 10.2 SECONDS (9.0-12.0)
[2017-12-29 13:56] LABS: ALANINE AMINOTRANSFERASE 26 U/L (12-78); ALBUMIN 3.4 G/DL (3.4-5.0); ALBUMIN/GLOBULIN RATIO 0.7 (1.1-1.5); ALKALINE PHOSPHATASE 137 IU/L (46-116); ANION GAP 11 (8-16); ASPARTATE AMINO TRANSFERASE 21 U/L (10-37); BILIRUBIN,TOTAL 0.7 MG/DL (0.1-1.0); BLOOD UREA NITROGEN 28 MG/DL (7-18); BUN/CREATININE RATIO 13.5 (5.4-32.0); CALCIUM 9.3 MG/DL (8.5-10.1); CHLORIDE 99 MMOL/L (99-107); CREATININE 2.08 MG/DL (0.60-1.10); GLUCOSE 193 MG/DL (70-104); POTASSIUM 4.7 MMOL/L (3.5-5.1); SODIUM 135 MMOL/L (135-145); TOTAL CARBON DIOXIDE 24.7 MMOL/L (24-32); TOTAL PROTEIN 8.2 G/DL (6.4-8.2); eGFR 37 ML/MIN
[2017-12-29 13:58] LABS: ANISOCYTOSIS 1+; PLATELET ESTIMATE NORMAL
[2017-12-29 14:04] LABS: MAGNESIUM 2.3 MG/DL (1.5-2.4)
[2017-12-29] MEDS ORDERED: furosemide 10 MG/1 ML 10ml inj IV ONE (14:25)
[2017-12-29] MEDS ORDERED: ENAL20TA75 PO (15:15)
[2017-12-29] MEDS ORDERED: METO50TA7 PO (15:17)
[2017-12-29] MEDS ORDERED: CHOL10002 PO (15:17)
[2017-12-29] MEDS ORDERED: MESSAGE TO PHARMACY PO ONE (17:05)
[2017-12-29] MEDS ORDERED: potassium Cl 20 mEq SR tablet PO PRN ×2 (17:05)
[2017-12-29] MEDS ORDERED: ondansetron/PF 4mg/2ml inj IV PRN (17:05)
[2017-12-29] MEDS ORDERED: magnesium 1gm/100ml D5W IVPB 100 ML IV PRN (17:05)
[2017-12-29] MEDS ORDERED: dextrose 50%-water 50ml dispensing syringe IV PRN ×2 (17:05)
[2017-12-29] MEDS ORDERED: glucagon, human recombinant 1mg kit SUBCUT PRN (17:05)
[2017-12-29] MEDS ORDERED: magnesium 4gm in 100ml NS 100 ML IV PRN (17:05)
[2017-12-29] MEDS ORDERED: potassium Cl 40MEQ/NS 500ml 500 ML IV PRN ×2 (17:05)
[2017-12-29] MEDS ORDERED: magnesium Cl slow-release 64mg tablet PO PRN (17:05)
[2017-12-29] MEDS ORDERED: HYDROcodone/acetaminophen 5mg/325mg tablet PO PRN (17:05)
[2017-12-29] MEDS ORDERED: dextrose ORAL solution 15 GM/59 ML bottle PO PRN ×2 (17:05)
[2017-12-29] MEDS ORDERED: albuterol 2.5 MG/3 ML nebule NEB PRN (17:10)
[2017-12-29] MEDS: furosemide 40mg/4ml inj IV SCH (17:13)
[2017-12-29 17:28] LABS: HEMOGLOBIN A1C 6.9 % (4.5-6.2)
[2017-12-29 20:00] VITALS: BP 175/92
[2017-12-29] MEDS: docusate sod 100mg capsule PO SCH (20:00)
[2017-12-29] MEDS: methylPREDNISolone sod succ/PF 40mg inj. IV SCH (20:24)
[2017-12-29] MEDS: metoprolol succinate 25mg (24-HOUR) SR. Tablet PO SCH (20:25)
[2017-12-29] MEDS: temazepam 15mg capsule PO SCH ×2 (20:25→21:32)
[2017-12-29] MEDS: insulin glargine (Lantus) pen - multi-dose SQ SCH (20:42)
[2017-12-30] VITALS: BP 157/85
[2017-12-30 05:29] LABS: BASOPHILS % (AUTO) 0 % (0-1); EOSINOPHILS % (AUTO) 0.1 % (0-6); HEMATOCRIT 34.2 % (42.0-52.0); HEMOGLOBIN 11.4 g/dl (14.0-17.9); LYMPHOCYTES # (AUTO) 0.3 X10'3 (1.1-4.8); LYMPHOCYTES % (AUTO) 4.1 % (21-51); MEAN CORPUSCULAR HEMOGLOBIN 29.9 PG (27.0-31.0); MEAN CORPUSCULAR HGB CONC 33.3 % (33.0-36.5); MEAN CORPUSCULAR VOLUME 89.6 FL (78-98); MEAN PLATELET VOLUME 8.1 FL (7.4-10.4); MONOCYTES # (AUTO) 0.1 X10'3 (0-0.9); MONOCYTES % (AUTO) 0.8 % (2-12); NEUTROPHILS # (AUTO) 7.4 X10'3 (1.8-7.7); PLATELET COUNT 285 X10'3 (140-440); RED BLOOD COUNT 3.81 X10'6 (4.70-6.10); RED CELL DISTRIBUTION WIDTH 17.9 % (11.5-14.5); WHITE BLOOD COUNT 7.8 X10'3 (4.5-11.0)
[2017-12-30 05:41] LABS: ALBUMIN 2.9 G/DL (3.4-5.0); ANION GAP 11 (8-16); BLOOD UREA NITROGEN 27 MG/DL (7-18); BUN/CREATININE RATIO 13.5 (5.4-32.0); CALCIUM 8.8 MG/DL (8.5-10.1); CHLORIDE 103 MMOL/L (99-107); CHOL/HDL RATIO 2.6 (0.00-4.99); CHOLESTEROL 134 MG/DL (0-200); GLUCOSE 202 MG/DL (70-104); HDL CHOLESTEROL 51 MG/DL (35-60); LDL CHOLESTEROL 74 MG/DL (50-100); MAGNESIUM 2.2 MG/DL (1.5-2.4); POTASSIUM 4.3 MMOL/L (3.5-5.1); SODIUM 139 MMOL/L (135-145); TOTAL CARBON DIOXIDE 24.7 MMOL/L (24-32); TRIGLYCERIDES 48 MG/DL (20-135); TROPONIN I 0.09 NG/ML (0.0-0.05); eGFR 39 ML/MIN
[2017-12-30 07:02] VITALS: BP 164/75
[2017-12-30] MEDS: furosemide 40mg/4ml inj IV SCH ×2 (07:38→19:54)
[2017-12-30] MEDS: pantoprazole 40mg Tablet.DR PO SCH (07:38)
[2017-12-30] MEDS: NIFEdipine XL 30mg tablet PO SCH (07:38)
[2017-12-30] MEDS: methylPREDNISolone sod succ/PF 40mg inj. IV SCH ×2 (07:38→19:55)
[2017-12-30] MEDS: aspirin 81mg tab.chew PO SCH (07:39)
[2017-12-30] MEDS: metoprolol succinate 25mg (24-HOUR) SR. Tablet PO SCH ×2 (07:39→19:55)
[2017-12-30] MEDS: lisinopril 20mg tablet PO SCH (07:39)
[2017-12-30] MEDS: K and/or MAG REPLACEMENT MC SCH (07:41)
[2017-12-30] MEDS: docusate sod 100mg capsule PO SCH ×2 (07:41→19:55)
[2017-12-30] MEDS: insulin Lispro (HumaLOG) vial - multi-dose SQ SCH ×3 (08:34→18:57)
[2017-12-30 11:55] VITALS: BP 130/60
[2017-12-30 20:00] VITALS: BP 130/49
[2017-12-30] MEDS: temazepam 15mg capsule PO SCH (20:53)
[2017-12-30] MEDS: insulin glargine (Lantus) pen - multi-dose SQ SCH (20:57)
[2017-12-31] VITALS: BP 126/57
[2017-12-31 04:55] LABS: BASOPHILS % (AUTO) 0.4 % (0-1); EOSINOPHILS % (AUTO) 0 % (0-6); HEMATOCRIT 33.3 % (42.0-52.0); HEMOGLOBIN 10.8 g/dl (14.0-17.9); LYMPHOCYTES # (AUTO) 0.6 X10'3 (1.1-4.8); LYMPHOCYTES % (AUTO) 5.5 % (21-51); MEAN CORPUSCULAR HEMOGLOBIN 29.4 PG (27.0-31.0); MEAN CORPUSCULAR HGB CONC 32.5 % (33.0-36.5); MEAN CORPUSCULAR VOLUME 90.2 FL (78-98); MEAN PLATELET VOLUME 8.2 FL (7.4-10.4); MONOCYTES # (AUTO) 0.2 X10'3 (0-0.9); MONOCYTES % (AUTO) 1.4 % (2-12); NEUTROPHILS # (AUTO) 10.9 X10'3 (1.8-7.7); NEUTROPHILS % (AUTO) 92.7 % (42-75); PLATELET COUNT 289 X10'3 (140-440); RED BLOOD COUNT 3.69 X10'6 (4.70-6.10); RED CELL DISTRIBUTION WIDTH 18.1 % (11.5-14.5); WHITE BLOOD COUNT 11.8 X10'3 (4.5-11.0)
[2017-12-31 05:19] LABS: ALBUMIN 2.7 G/DL (3.4-5.0); ANION GAP 7 (8-16); BLOOD UREA NITROGEN 40 MG/DL (7-18); BUN/CREATININE RATIO 16.4 (5.4-32.0); CHLORIDE 103 MMOL/L (99-107); CREATININE 2.44 MG/DL (0.60-1.10); GLUCOSE 170 MG/DL (70-104); MAGNESIUM 2.3 MG/DL (1.5-2.4); POTASSIUM 4.5 MMOL/L (3.5-5.1); SODIUM 138 MMOL/L (135-145); TOTAL CARBON DIOXIDE 27.8 MMOL/L (24-32); eGFR 31 ML/MIN
[2017-12-31 07:00] VITALS: BP 155/85
[2017-12-31] MEDS: docusate sod 100mg capsule PO SCH ×2 (08:00→19:47)
[2017-12-31] MEDS: K and/or MAG REPLACEMENT MC SCH (08:00)
[2017-12-31] MEDS: insulin Lispro (HumaLOG) vial - multi-dose SQ SCH ×3 (08:35→19:18)
[2017-12-31] MEDS: methylPREDNISolone sod succ/PF 40mg inj. IV SCH ×2 (08:46→19:40)
[2017-12-31] MEDS: lisinopril 20mg tablet PO SCH (08:47)
[2017-12-31] MEDS: NIFEdipine XL 30mg tablet PO SCH (08:47)
[2017-12-31] MEDS: pantoprazole 40mg Tablet.DR PO SCH (08:47)
[2017-12-31] MEDS: aspirin 81mg tab.chew PO SCH (08:47)
[2017-12-31] MEDS: furosemide 40mg/4ml inj IV SCH ×2 (08:47→19:42)
[2017-12-31] MEDS: metoprolol succinate 25mg (24-HOUR) SR. Tablet PO SCH ×2 (08:47→19:47)
[2017-12-31 12:29] VITALS: BP 123/82
[2017-12-31 20:00] VITALS: BP 120/83
[2017-12-31] MEDS: insulin glargine (Lantus) pen - multi-dose SQ SCH (21:58)
[2017-12-31] MEDS: temazepam 15mg capsule PO SCH (21:59)
[2018-01-01] VITALS: BP 130/77
[2018-01-01 05:45] LABS: BASOPHILS % (AUTO) 0.1 % (0-1); EOSINOPHILS # (AUTO) 0.1 X10'3 (0-0.9); EOSINOPHILS % (AUTO) 1.2 % (0-6); HEMATOCRIT 33.4 % (42.0-52.0); HEMOGLOBIN 10.8 g/dl (14.0-17.9); LYMPHOCYTES # (AUTO) 0.5 X10'3 (1.1-4.8); LYMPHOCYTES % (AUTO) 4.3 % (21-51); MEAN CORPUSCULAR HEMOGLOBIN 29.4 PG (27.0-31.0); MEAN CORPUSCULAR HGB CONC 32.4 % (33.0-36.5); MEAN CORPUSCULAR VOLUME 90.6 FL (78-98); MONOCYTES # (AUTO) 0.4 X10'3 (0-0.9); NEUTROPHILS % (AUTO) 91.4 % (42-75); PLATELET COUNT 306 X10'3 (140-440); RED BLOOD COUNT 3.69 X10'6 (4.70-6.10); RED CELL DISTRIBUTION WIDTH 18.1 % (11.5-14.5)
[2018-01-01 05:50] LABS: ALBUMIN 2.6 G/DL (3.4-5.0); ANION GAP 9 (8-16); BLOOD UREA NITROGEN 47 MG/DL (7-18); BUN/CREATININE RATIO 19.7 (5.4-32.0); CHLORIDE 103 MMOL/L (99-107); CREATININE 2.39 MG/DL (0.60-1.10); GLUCOSE 162 MG/DL (70-104); MAGNESIUM 2.3 MG/DL (1.5-2.4); POTASSIUM 4.3 MMOL/L (3.5-5.1); SODIUM 139 MMOL/L (135-145); TOTAL CARBON DIOXIDE 27.4 MMOL/L (24-32); eGFR 32 ML/MIN
[2018-01-01 07:42] VITALS: BP 132/72
[2018-01-01] MEDS: docusate sod 100mg capsule PO SCH (08:00)
[2018-01-01] MEDS: K and/or MAG REPLACEMENT MC SCH (08:00)
[2018-01-01 09:34] LABS: ANISOCYTOSIS 2+; BURR CELLS FEW; PLATELET ESTIMATE NORMAL; SCHISTOCYTES FEW
[2018-01-01] MEDS: insulin Lispro (HumaLOG) vial - multi-dose SQ SCH (10:09)
[2018-01-01] MEDS: pantoprazole 40mg Tablet.DR PO SCH (10:12)
[2018-01-01] MEDS: aspirin 81mg tab.chew PO SCH (10:12)
[2018-01-01] MEDS: lisinopril 20mg tablet PO SCH (10:13)
[2018-01-01] MEDS: NIFEdipine XL 30mg tablet PO SCH (10:13)
[2018-01-01] MEDS: metoprolol succinate 25mg (24-HOUR) SR. Tablet PO SCH (10:14)
[2018-01-01] MEDS: methylPREDNISolone sod succ/PF 40mg inj. IV SCH (10:14)
[2018-01-01] MEDS: furosemide 40mg/4ml inj IV SCH (10:14)
[2018-01-01 11:44] VITALS: BP 134/68
[2018-01-01 11:47] VITALS: BP 116/91
[2018-01-01] MEDS ORDERED: FURO-149 PO (12:14)
[2018-01-01] MEDS ORDERED: POTA10TA36 PO (12:14)
== END 2018-01-01 14:00 | disposition home health service (06) | DRG 291 ==
LOC: ER 12:55 → ED HOLD 17:01 → EDBEDREQ 19:13 → SUR 3N 19:40
PROVIDERS: ADMIT Internal Medicine; ATTEND Family Medicine
DX: I13.0 Hypertensive heart and chronic kidney disease with heart failure and stage 1 through stage 4 chronic kidney disease, or unspecified chronic kidney disease (principal); I50.43 Acute on chronic combined systolic (congestive) and diastolic (congestive) heart failure; J90 Pleural effusion, not elsewhere classified; N18.4 Chronic kidney disease, stage 4 (severe); E11.22 Type 2 diabetes mellitus with diabetic chronic kidney disease; I48.0 Paroxysmal atrial fibrillation; I07.1 Rheumatic tricuspid insufficiency; E11.42 Type 2 diabetes mellitus with diabetic polyneuropathy; Z60.2 Problems related to living alone; H40.9 Unspecified glaucoma; H54.8 Legal blindness, as defined in USA; I48.2 Chronic atrial fibrillation; Z79.899 Other long term (current) drug therapy; Z79.82 Long term (current) use of aspirin; Z87.01 Personal history of pneumonia (recurrent)
CPT/HCPCS: 36415; 71045; 80048; 80053; 80061; 82948; 83036; 83735; 83880; 84484; 85025; 85610; 85730; 87070; 93005; 93306; 94640; 94760; 96374; 97116; 97161; 99285; A6212; J1815; J1940; J2920